=== PATIENT | male | born 1990 | race Two or more races ===

== ENCOUNTER 2024-09-03 16:17 | Inpatient (IN) | payer OTHER ==
[2024-09-03 16:39] VITALS: BMI 23.8
[2024-09-03] MEDS ORDERED: POLYETHYLENE GLYCOL (HEALTHYLAX) 3350 17 GM PACKET PO PRN (17:16)
[2024-09-03] MEDS ORDERED: BENZOCAINE/MENTHOL (CHLORASEPTIC ) LOZENGE MM PRN (17:16)
[2024-09-03] MEDS ORDERED: guaiFENesin 600 MG TABLET.ER (FP) PO PRN (17:16)
[2024-09-03] MEDS ORDERED: BENZONATATE 200 MG CAPSULE PO PRN (17:16)
[2024-09-03] MEDS ORDERED: IBUPROFEN 600 MG TABLET (FP) PO PRN (17:16)
[2024-09-03] MEDS ORDERED: MAGNESIUM HYDROX 2400MG/30ML ORAL SUSPENSION 30 ML CUP PO PRN (17:16)
[2024-09-03] MEDS ORDERED: MAG HYDROX/AL HYDROX/SIMETH 30 ML UNIT-DOSE CUP PO PRN (17:16)
[2024-09-03] MEDS ORDERED: IBUPROFEN 400 MG TABLET (FP) PO PRN (17:16)
[2024-09-03] MEDS ORDERED: ONDANSETRON *ODT* 4 MG TABLET SL PRN (17:16)
[2024-09-03] MEDS ORDERED: BISMUTH SUBSALICYLATE 524 MG/30 ML PO PRN (17:16)
[2024-09-03] MEDS ORDERED: DICYCLOMINE HCL 10 MG CAPSULE PO PRN (17:16)
[2024-09-03] MEDS ORDERED: LOPERAMIDE HCL 2 MG CAPSULE PO PRN (17:16)
[2024-09-03] MEDS ORDERED: ACETAMINOPHEN 325 MG TABLET (FP) PO PRN (17:16)
[2024-09-03] MEDS ORDERED: NALOXONE (NARCAN) HCL 4 MG/0.1 ML SPRAY NS PRN (17:16)
[2024-09-03] MEDS ORDERED: NICOTINE POLACRILEX 2 MG LOZENGE BC PRN (17:20)
[2024-09-03] MEDS: hydrOXYzine PAMOATE 25 MG CAPSULE (FP) PO PRN (19:33)
[2024-09-03] MEDS: METHOCARBAMOL 500 MG TABLET PO PRN (19:34)
[2024-09-03 21:07] VITALS: BP 139/84; PULSE 75; RESP 16; TEMP 97.7
[2024-09-03] MEDS: THIAMINE 100 MG TABLET PO SCH (22:59)
[2024-09-03] MEDS: MELATONIN 5 MG TABLETS PO SCH (22:59)
[2024-09-04] MEDS ORDERED: PRENATAL VITAMINS W/ FOLIC ACID TABLET (FP) PO SCH (10:00)
== END 2024-09-03 22:38 | disposition left against medical advice (07) | DRG 770 ==
LOC: YASAS 16:17 → Y6N 18:15
PROVIDERS: ADMIT Allergy & Immunology; ATTEND Allergy & Immunology
PROC: HZ2ZZZZ Detoxification Services for Substance Abuse Treatment (ICD-10-PCS; principal; 2024-09-03)
DX: F10.230 Alcohol dependence with withdrawal, uncomplicated (principal); F15.10 Other stimulant abuse, uncomplicated; F13.10 Sedative, hypnotic or anxiolytic abuse, uncomplicated; F17.210 Nicotine dependence, cigarettes, uncomplicated; F31.9 Bipolar disorder, unspecified
CPT/HCPCS: 36415; 80053; 80305; 80307; 83735; 85025; 93005; 93010; 99282-25